=== PATIENT | male | born 1945 | race Caucasian/White ===

== ENCOUNTER 2021-09-27 14:25 | Emergency (ER) | payer OTHER, MEDICARE ==
[2021-09-27 15:17] VITALS: RESP 18; BMI 21.9
[2021-09-27] MEDS ORDERED: BEBTELOVIMAB (EUA) 175 MG/2 ML VIAL IVPUSH ONE (15:26)
[2021-09-27 18:10] VITALS: BP 112/60; PULSE 69; TEMP 98.2
== END 2021-09-27 18:41 | disposition home or self-care (01) ==
LOC: JER 14:25
DX: Z20.822 Contact with and (suspected) exposure to COVID-19 (principal)
CPT/HCPCS: 96374; 99283-25; M0222; Q0222

== ENCOUNTER 2023-12-20 08:38 | Day surgery (SDC) | payer OTHER, MEDICARE ==
[2023-12-19 14:21] VITALS: BMI 20.9
[2023-12-20] MEDS ORDERED: NEO/POLYMYX B SULF/DEXAMETH OPHTHALMIC 5ML BOTTLE ONE (08:50)
[2023-12-20] MEDS ORDERED: EPINEPHrine/PF 1 MG/1 ML (1:1,000) AMPULE ONE (08:50)
[2023-12-20] MEDS ORDERED: LIDOCAINE 1% P/F 10 MG/ML VIAL ONE (08:50)
[2023-12-20] MEDS ORDERED: CARBACHOL 0.01% INTRA-OCULAR 1.5 ML VIAL ONE (08:50)
[2023-12-20] MEDS ORDERED: BSS (NA/CA/MG/K) BALANCED SALT SOLUTION OPHTH SOLN 15 ML BOTTLE ONE (08:50)
[2023-12-20] MEDS ORDERED: TETRACAINE 0.5% OPHTH SOLN 2 ML BOTTLE ONE (08:50)
[2023-12-20] MEDS: PHENYLEPHRINE 2.5% OPTHALMIC DROP 2ML BOTTLE ONE (09:15)
[2023-12-20] MEDS: CIPROFLOXACIN 0.3% EYE DROPS 5 ML BOTTLE ONE (09:15)
[2023-12-20] MEDS: TROPICAMIDE 1% OPHTH SOLN 15 ML BOTTLE ONE (09:15)
[2023-12-20] MEDS: CYCLOPENTOLATE 2% OPHTH SOLN 2 ML BOTTLE ONE (09:15)
[2023-12-20] MEDS ORDERED: MIDAZOLAM HCL 2 MG/2 ML SINGLE DOSE VIAL ONE (11:16)
[2023-12-20 12:14] VITALS: TEMP 97.8
[2023-12-20 12:16] VITALS: BP 144/72; PULSE 68; RESP 19
== END 2023-12-20 12:20 | disposition home or self-care (01) ==
LOC: FASU 08:38
PROVIDERS: ATTEND Ophthalmology
PROC: 08RK3JZ Replacement of Left Lens with Synthetic Substitute, Percutaneous Approach (ICD-10-PCS; principal; 2023-12-20 11:23)
DX: H26.8 Other specified cataract (principal)
CPT/HCPCS: 66984; V2632